=== PATIENT | female | born 1970 | race Caucasian/White ===

== ENCOUNTER → 2023-08-10 16:20 | Outpatient (REF) | payer OTHER, SELFPAY | LOC: HWWDC 16:20 | PROVIDERS: ATTENDING PHYSICIAN Internal Medicine | DX: Z12.31 Encounter for screening mammogram for malignant neoplasm of breast (principal) | CPT/HCPCS: 77063; 77067 ==

== ENCOUNTER 2024-01-22 07:50 | Emergency (ER) | payer OTHER, SELFPAY ==
[2024-01-22 07:52] VITALS: BP 122/75
--- NOTE | 2024-01-22 08:11 | ED.GENMED ---
History of Present Illness
General
Chief Complaint: Abdominal Pain
Source: patient
Time Seen by Provider: 01/22/24 07:55
History of Present Illness
History of Present Illness:
53yoF with no significant past medical history presenting for evaluation of abdominal pain. Symptoms began 3-4 days ago while she was eating dinner [place] a cruise. She reports a dull aching pain in her RUQ which she has had before. The majority of her
pain is located in the R flank which she describes as excruciating. The R flank pain has been constant for the past several days and is gradually worsening. Pain is worse with movement and eating. She has tried Advil and lidocaine patches without
improvement. She is otherwise asymptomatic and denies any fevers, chills, vomiting, diarrhea, chest pain, shortness of breath, dysuria. Previous abdominal surgeries include a hysterectomy and tummy tuck. Her only medication is tirzepatide which she
started about a month ago for weight loss.
Past History
Past History
ED Past Medical History: None
ED Past Surgical History: None
Social History
Tobacco: Non-smoker
Alcohol: None
Phy Exam
General Physical Exam
General Presentation: well appearing and no apparent distress
General age: appears stated age
General Skin: warm and dry
General Habitus: normal
General Mental: alert
Cardiovascular Exam
Cardiovascular Exam: regular rate/rhythm, no edema and no murmur
Pulmonary Exam
Pulmonary Exam: lungs clear, no respiratory distress, no crackles and no wheezing
Gastrointestinal Exam
Gastrointestinal Exam: non tender, soft, non distended, cva tenderness and other (No reproducible tenderness in abdomen. +Reproducible tenderness in the R flank with +CVA tenderness. No skin changes. )
Skin Exam
Skin Exam: normal color and warm/dry
Psychiatric Exam
Psychiatric Exam: normal mood/affect
Course
Orders/Labs/Results
Orders:
Orders
01/22/24 08:09
0.9% Sodium Chloride 1000 ml [Nss] 1,000 ml IV BOLUS
Ketorolac [Toradol] 15 mg IV NOW STA
01/22/24 08:10
CT Abd/pelvis W Iv Cont Urgent
Comment:
Reason For Exam: RUQ, R flank pain
01/22/24 08:33
Basic Metabolic Panel Urgent
Complete Blood Count/With Diff Urgent
Lipase Urgent
Urinalysis Reflex To Culture Urgent
Date Specimen was Collected: 01/22/24
Time Specimen was Collected: 08:31
Urine Microscopic Reflex Cult Urgent
01/22/24 09:03
LFT [[id number]] Urgent
Potassium Urgent
Abnormal Lab Results
01/22/24 01/22/24
08:33 09:03
Lymphocytes % 19.6 L %
(20.5-51.1)
Monocytes % 9.5 H %
(1.7-9.3)
Total Bilirubin 1.5 H mg/dl
(0.2-1.3)
Leukocyte Esterase Rfl Trace A
(Negative)
01/22/24 08:33
01/22/24 09:03
Vital Signs
Initial and Last Documented VS:
Initial Vital Signs
Temp Pulse Resp BP Pulse Ox
97.8 F 71 18 122/75 99
01/22/24 07:52 01/22/24 07:52 01/22/24 07:52 01/22/24 07:52 01/22/24 07:52
Last Documented Vital Signs
Temp Pulse Resp BP Pulse Ox
97.8 F 66 15 106/67 98
01/22/24 07:52 01/22/24 09:09 01/22/24 09:09 01/22/24 10:08 01/22/24 10:08
MDM/Problems Addressed
Differential Diagnosis Includes:
53yoF here with RUQ and R flank pain x 3-4 days. Worse with movement and eating. No CP/SOB. Started while on a cruise. She is afebrile and hemodynamically stable. She is well appearing in no distress. Abdominal exam is benign. There is reproducible
tenderness to the R flank on exam without skin changes. Differential diagnosis includes but is not limited to: kidney stone, pyelonephritis, biliary pathology, musculoskeletal, early shingles
Initial ED plan: Check abdominal labs, UA, and CT abdomen. IV Toradol for pain.
*Critical Care Note
Total Time (30-74mins, 75-104mins- exclusive of procedures): Not Applicable
Update Note
Update Note:
Total bilirubin 1.5. Remainder of LFTs are normal. White count, renal function, lipase normal. No overt signs of infection on UA. CT abdomen is negative for acute findings. There was a lesion seen incidentally on the liver for which outpatient
ultrasound is recommended. Patient informed of finding and copy of CT scan report was provided to patient. Unclear etiology of pain, possibly musculoskeletal as pain is positional and improved after Toradol. No indication for admission. Advised
close f/u with PCP and ED return precautions discussed. She was discharged in stable condition.
ED Attending Note
-
Portions of this chart may have been created with voice recognition software.� Occasional wrong word or��sound alike� substitutions may have occurred due to the inherent limitations of voice recognition software.
Discharge Plan
Departure
Patient Disposition: Home (Routine Discharge)
Date of Disposition: 01/22/24
Time of Disposition: 10:26
Patient with high blood pressure during this ER visit?: No
Discharge Problem:
Right upper quadrant pain, Right flank pain, Lesion of liver
Instructions: Flank Pain (DC)
Prescriptions:
No Action
tirzepatide
3 mg PO . DIRECTED
Referrals:
UNKNOWN - PT DOES,NOT KNOW [Family Provider] -
Activity Restrictions/Additional Instructions:
Take Tylenol and ibuprofen for pain. Apply heat to affected area.
You will need an ultrasound of your liver for the abnormality seen on your CT scan.
Please follow-up with your family doctor in 2-3 days. Return to the ER immediately with any new or worsening symptoms.
Interventions
Interventions:
*Risk Screen - Suicide Last Done: 01/22/24 08:45
*Neglect/Abuse Screening Last Done: 01/22/24 08:45
ED- Fall Risk Assessment Last Done: 01/22/24 08:45
*ED COVID-19 Vaccine History Last Done: 01/22/24 09:08
*Nursing Disposition Last Done: 01/22/24 10:58
CF-Fzdlgw-Kocechjlzn Assessment Last Done: 01/22/24 08:45
Discharge Date and Time
Discharge Date/Time: 01/22/24 10:59
Print Language: SWEDISH
[2024-01-22] MEDS: TORADOL 15 MG IV (08:35)
[2024-01-22] MEDS: NSS 1000 IV (08:36)
[2024-01-22 08:40] VITALS: BP 106/63
[2024-01-22 08:47] LABS: % Basophils 0.5 % (0-2); % Eosinophils 5.4 % (0-6); % Immature Granulocytes 0.5 % (0-0.5); % Lymphocytes 19.6 % (20.5-51.1); % Monocytes 9.5 % (1.7-9.3); % Neutrophils 64.5 % (42.2-75.2); Absolute Eosinophils 0.4 10^3/uL (0-0.7); Absolute Lymphocytes 1.3 10^3/uL (1.2-3.4); Absolute Monocytes 0.6 10^3/uL (0.1-0.6); Absolute Neutrophils 4.3 10^3/uL (1.4-6.5); Hematocrit 37.6 % (37.0-47.0); Hemoglobin 13.1 g/dL (12.0-16.0); Mean Corp Hgb Conc. 34.8 g/dL (33.0-37.0); Mean Corpuscular Hgb 30.1 pg (27.0-31.0); Mean Corpuscular Volume 86.4 fL (81.0-99.0); Mean Platelet Volume 10.3 fL (7.4-10.4); Nucleated Red Blood Cells % 0 %; Platelet Count 217 10^3/uL (130-400); Red Blood Cell Count 4.35 10^6/uL (4.20-5.40); Red Cell Dist. Width 13.5 % (11.5-14.5); White Blood Cell Count 6.6 10^3/uL (4.8-10.8)
[2024-01-22 08:48] LABS: Urine Albumin Negative (Neg - Trace); Urine Bilirubin Negative (Negative); Urine Character Slightly Cloudy (Clear); Urine Color Yellow; Urine Glucose Negative (Negative); Urine Ketone Negative (Negative); Urine Leukocyte Trace (Negative); Urine Nitrite Negative (Negative); Urine Occult Blood Negative (Negative); Urine Urobilinogen Negative (Neg - 1+)
[2024-01-22 08:57] LABS: Blood Urea Nitrogen 17 mg/dl (7-17); Calcium 9.1 mg/dl (8.4-10.2); Carbon Dioxide 28 mmol/L (22-30); Chloride 104 mmol/L (98-107); Glucose 96 mg/dl (70-99); Lipase 128 U/L (23-300); Sodium 135 mmol/L (135-145); eGFR > 60.00
[2024-01-22 09:00] VITALS: BP 109/64
[2024-01-22 09:41] LABS: ALT (SGPT) 28 U/L (0-35); AST (SGOT) 31 U/L (14-36); Albumin 4.1 g/dl (3.5-5.0); Alkaline Phosphatase 57 U/L (38-126); Direct Bilirubin 0.1 mg/dl (0.0-0.4); Potassium 4.1 mmol/L (3.5-5.1); Total Bilirubin 1.5 mg/dl (0.2-1.3); Total Protein 6.3 g/dl (6.3-8.2)
[2024-01-22 10:08] VITALS: BP 106/67
[2024-01-22 12:11] LABS: Urine Amorphous Seen; Urine Red Blood Cell 0-2 /HPF (0-2); Urine Squamous Cell >30 /LPF (Few)
[2024-01-22 12:12] LABS: Urine White Cell 0-2 /HPF (0-5)
== END 2024-01-22 10:59 | disposition home or self-care (01) ==
LOC: EMR 07:50
PROVIDERS: Physician Assistant; EMERGENCY PHYSICIAN Emergency Medicine
DX: R10.11 Right upper quadrant pain (principal); K76.9 Liver disease, unspecified; Z88.6 Allergy status to analgesic agent
CPT/HCPCS: 99285; 96361; 96374; 74177; 80048; 80076; 81003; 81015; 83690; 84132; 85025; Q9967